=== PATIENT | male | born 1995 | race Caucasian/White ===

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

== ENCOUNTER 2020-06-10 04:42 | Emergency (ER) | payer OTHER ==
[2020-06-10 05:14] VITALS: BP 147/89
[2020-06-10] MEDS ORDERED: ACETAMINOPHEN 325 MG TABLET PO ONE (05:30)
--- NOTE | 2020-06-10 06:02 | RADIOLOGY REPORT (SQ) ---
Left hand x-ray three views on 06/10/2020 at 5:37 AM Clinical indication: Medial hand pain after fall COMPARISON: None FINDINGS: There is an acute, transverse, likely slightly comminuted, displaced fracture of the proximal metaphysis of the base of the fifth metatarsal. There is dorsal displacement of the distal fracture fragment. No other fracture is noted. Visualized joints are well aligned. IMPRESSION: Acute fracture of the base of the fifth metacarpal as above.
[2020-06-10] MEDS ORDERED: IBUPROFEN 800 MG TABLET PO ONE (07:29)
--- NOTE | 2020-06-10 08:02 | ER Document Report ---
Entered by DEMI CRAIG SCRIBE 06/10/20 0723 Acting as scribe for:DILCIA RODRIGUEZ MD ED Hand/Wrist Injury - General Chief Complaint: Hand Injury Stated Complaint: LEFT HAND PAIN/FALL Time Seen by Provider: 06/10/20 07:06 Mode of Arrival: Ambulatory Information source: Patient Notes: This 24 year old male patient presents to the ED today with complaints of left hand pain. Patient states that he tripped over concrete and fell, landing on his knuckles on his left hand yesterday. Denies any other areas of injuries or neck pain. He reports applying ice to the injury, but no pain medications. TRAVEL OUTSIDE OF THE [place] IN LAST 30 DAYS: No - Related Data Allergies/Adverse Reactions: No Known Allergies Allergy (Unverified 11/13/16 15:23) Past Medical History - General Information source: Patient - Social History Smoking Status: Current Every Day Smoker Chew tobacco use (# tins/day): No Smoking Education Provided: No Frequency of alcohol use: Rare Drug Abuse: None Lives with: Friend Family History: Reviewed & Not Pertinent Patient has suicidal ideation: No Patient has homicidal ideation: No Psychiatric Medical History: Reports: Hx Attention Deficit Hyperactivity Disorder - Was on Adderall, but no longer takes it. Past Surgical History: Reports: Hx Adenoidectomy, Hx Orthopedic Surgery - ankle ORIF, Hx Tonsillectomy - Immunizations Immunizations up to date: Yes Hx Diphtheria, Pertussis, Tetanus Vaccination: Yes Review of Systems - Review of Systems Constitutional: No symptoms reported EENT: No symptoms reported Cardiovascular: No symptoms reported Respiratory: No symptoms reported Gastrointestinal: No symptoms reported Genitourinary: No symptoms reported Male Genitourinary: No symptoms reported Musculoskeletal: See HPI Skin: No symptoms reported Hematologic/Lymphatic: No symptoms reported Neurological/Psychological: No symptoms reported -: Yes All other systems reviewed and negative Physical Exam - Vital signs Vitals: Temp Pulse Resp BP Pulse Ox 97.8 F 90 18 147/89 H 99 06/10/20 05:13 06/10/20 05:13 06/10/20 05:13 06/10/20 05:13 06/10/20 05:13 - General General appearance: Alert In distress: None - HEENT Head: Normocephalic, Atraumatic Eyes: Normal Pupils: PERRL - Respiratory Respiratory status: No respiratory distress Chest status: Nontender Breath sounds: Normal Chest palpation: Normal - Cardiovascular Rhythm: Regular Heart sounds: Normal auscultation Murmur: No Friction rub: No Gallop: None auscultated - Abdominal Inspection: Normal Distension: No distension Bowel sounds: Normal Tenderness: Nontender - Abdomen soft Organomegaly: No organomegaly - Back Back: Normal, Nontender - Extremities General lower extremity: Normal inspection. No: Edema Hand: Tender - Tenderness to palpation of base of 5th metacarpal, Swelling - base of 5th metacarpal, Other - Distal pulse, motor, and sensation intact. Full ROM with flexion and extension. No: Abrasion, Deformity, Ecchymosis - Neurological Neuro grossly intact: Yes Orientation: AAOx4 [place] Coma Scale Eye Opening: Spontaneous [place] Coma Scale Verbal: Oriented [place] Coma Scale Motor: Obeys Commands [place] Coma Scale Total: 15 - Psychological Associated symptoms: Normal affect, Normal mood - Skin Skin Temperature: Warm Skin Moisture: Dry Skin Color: Normal Course - Re-evaluation Re-evalutation: 06/10/20 07:51 Patient resting comfortable, pending cock-up splint stabilized fracture of fifth metacarpal. - Vital Signs Vital signs: Temp Pulse Resp BP Pulse Ox 97.8 F 90 18 147/89 H 99 06/10/20 05:13 06/10/20 05:13 06/10/20 05:13 06/10/20 05:13 06/10/20 05:13 06/10/20 07:55 Vital signs stable - Diagnostic Test Radiology reviewed: Image reviewed, Reports reviewed Radiology results interpreted by me: 06/10/20 07:23 Hand X-Ray 06/10/20 00:00 IMPRESSION: Acute fracture of the base of the fifth metacarpal as above. 06/10/20 07:55 X-ray of right hand shows an acute fracture at the base of the fifth metacarpal. Discharge - Discharge Clinical Impression: Fracture of fifth metacarpal bone of left hand Condition: Stable Disposition: HOME, SELF-CARE Additional Instructions: Fractured Fifth Metacarpal (Boxer's) You have a fracture of the fifth metacarpal bone in the hand, often called a Boxer's Fracture. The fracture is usually caused by striking the knuckle against a hard surface -- such as hitting a wall with the fist. This fracture heals well. Some degree of angle in the fracture is perfectly acceptable, resulting in only a slightly rounder knuckle. Your physician has determined whether your fracture could benefit from "setting", and has outlined a treatment plan for you. The usual treatment is splinting for four to six weeks -- a cast is not usually necessary. At first, the injury should be elevated and ice packed. Contact the doctor at once if swelling or pain becomes severe, or if numbness develops. You have a fracture at the base of the fifth metacarpal bone which is different than a boxer's fracture.. You are placed in a splint to help control pain and swelling. And we do recommend you follow-up with Dr. Aguilar, orthopedic doctor for further evaluation and care. Prescriptions: Ibuprofen [Motrin 800 mg Tablet] 800 mg PO Q8H PRN #21 tablet PRN Reason: pain Referrals: SANIA AGUILAR DO [ACTIVE STAFF] - Follow up in 3-5 days I personally performed the services described in the documentation, reviewed and edited the documentation which was dictated to the scribe in my presence, and it accurately records my words and actions.
== END 2020-06-10 08:29 | disposition home or self-care (01) ==
LOC: ER 04:42
DX: S62.317A Displaced fracture of base of fifth metacarpal bone, left hand, initial encounter for closed fracture (principal); W01.0XXA Fall on same level from slipping, tripping and stumbling without subsequent striking against object, initial encounter; F17.200 Nicotine dependence, unspecified, uncomplicated
CPT/HCPCS: 99283